=== PATIENT | female | born 1980 | race Caucasian/White ===

== ENCOUNTER 2023-03-14 21:00 | Emergency (ER) | payer BC ==
[~2023-03-14] VITALS: Ht 170.2 cm; Wt 95.3 kg
== END 2023-03-15 00:42 | disposition home or self-care (01) ==
LOC: ER 21:01
DX: S62.101A Fracture of unspecified carpal bone, right wrist, initial encounter for closed fracture (principal); X58.XXXA Exposure to other specified factors, initial encounter; Y93.9 Activity, unspecified; Y92.9 Unspecified place or not applicable; Y99.9 Unspecified external cause status; Z88.0 Allergy status to penicillin